=== PATIENT | female | born 1950 | race Caucasian/White ===

== ENCOUNTER 2017-11-29 14:24 | Emergency (ER) | payer MEDICARE ==
[2017-11-29 17:19] VITALS: BP 139/63
--- NOTE | 2017-11-29 17:31 | UC ---
Respiratory Complaint HPI - HPI Summary HPI Summary: Patient has flu like fever and symtpoms for the past 2 days, son and both have FLu A. - History of Current Complaint Chief Complaint: UCGeneralIllness Stated Complaint: COUGH,FEVER,FATIGUE Time Seen by Provider: 11/29/17 17:19 Hx Obtained From: Patient ?: No Onset/Duration: Sudden Onset, Lasting Days Timing: Constant Severity Initially: Mild Severity Currently: Moderate Pain Intensity: 0 Character: Cough: Nonproductive Aggravating Factors: Exertion, Deep Breaths, Recumbent Position Alleviating Factors: Nothing Associated Signs And Symptoms: Positive: Fever, Chills, Wheezing, URI - Allergies/Home Medications Allergies/Adverse Reactions: Allergies Allergy/AdvReac Type Severity Reaction Status Date / Time No Known Allergies Allergy Verified 11/29/17 17:18 PMH/Surg Hx/FS Hx/Imm Hx Previously Healthy: Yes - Surgical History Surgical History: Yes Surgery Procedure, Year, and Place: Bones spear L foot 1997. Histerectomy 2001. Tubal Ligation 1986. GASTRIC BYPASS 10/2014 - Family History Known Family History: Negative: Cardiac Disease, Hypertension - Social History Alcohol Use: None Substance Use Type: None Smoking Status (MU): Former Smoker Amount Used/How Often: pt states her son smokes in the house. pt states she quit 30 years ago Length of Time of Smoking/Using Tobacco: 13 YEARS Have You Smoked in the Last Year: No When Did the Patient Quit Smoking/Using Tobacco: 30 years ago - Immunization History Most Recent Influenza Vaccination: 2013 Most Recent Tetanus Shot: UNKNOWN Most Recent Pneumonia Vaccination: NONE Review of Systems Constitutional: Fever, Chills, Fatigue Skin: Negative Eyes: Negative ENT: Sore Throat Respiratory: Cough Cardiovascular: Negative Gastrointestinal: Negative Genitourinary: Negative Motor: Negative Neurovascular: Negative Musculoskeletal: Arthralgia, Myalgia Neurological: Headache Psychological: Negative Is Patient Immunocompromised?: No All Other Systems Reviewed And Are Negative: Yes Physical Exam Triage Information Reviewed: Yes Appearance: Well-Nourished, Ill-Appearing, Pain Distress Vital Signs: Initial Vital Signs Temp 102.2 F 11/29/17 17:14 Pulse 88 11/29/17 17:14 Resp 16 11/29/17 17:14 BP 139/63 11/29/17 17:14 Pulse Ox 99 11/29/17 17:14 Vital Signs Reviewed: Yes Eye Exam: Normal ENT: Positive: Pharyngeal erythema, TM red Dental Exam: Normal Neck exam: Normal Neck: Positive: Supple, Nontender, No Lymphadenopathy Respiratory Exam: Normal Respiratory: Positive: Chest non-tender, Lungs clear, Normal breath sounds, No respiratory distress, No accessory muscle use Cardiovascular Exam: Normal Cardiovascular: Positive: RRR, No Murmur, Pulses Normal Abdominal Exam: Normal Abdomen Description: Positive: Nontender, No Organomegaly, Soft Bowel Sounds: Positive: Present Musculoskeletal Exam: Normal Neurological Exam: Normal Psychological Exam: Normal Skin Exam: Normal UC Diagnostic Evaluation - Laboratory O2 Sat by Pulse Oximetry: 99 Respiratory Course/Dx - Course Course Of Treatment: hx obtained, exam performed ,meds reviewed, treated for flu with tamiflu - Differential Dx/Diagnosis Differential Diagnosis/HQI/PQRI: Asthma, Bronchitis, Influenza, Laryngitis, Sinusitis Provider Diagnoses: influenza Discharge - Discharge Plan Condition: Stable Disposition: HOME Patient Education Materials: Influenza (ED) Referrals: Ry Scales, [employer] [Primary Care Provider] - Additional Instructions: take the medication as prescribed. you can open the tamiflu and put it on food, or mix i with 4 oz of fluid and drink it. lots of fluids, lots of rest, ibufprofen and tylenol for pain and fever.
== END 2017-11-29 17:39 | disposition home or self-care (01) ==
LOC: UCCORT 14:24
DX: J11.1 Influenza due to unidentified influenza virus with other respiratory manifestations (principal); Z90.710 Acquired absence of both cervix and uterus; Z98.84 Bariatric surgery status; Z87.891 Personal history of nicotine dependence; Z77.22 Contact with and (suspected) exposure to environmental tobacco smoke (acute) (chronic)
CPT/HCPCS: 99212; G0463

== ENCOUNTER 2018-03-26 08:22 | Emergency (ER) | payer MEDICARE ==
[2018-03-26 08:51] VITALS: BP 118/63
--- NOTE | 2018-03-26 10:12 | UC ---
Throat Pain/Nasal Daniel HPI - HPI Summary HPI Summary: 68 yo WF c/o sore throat since yesterday associated with nasal congestion w/o f/ c - History of Current Complaint Chief Complaint: UCGeneralIllness Stated Complaint: SORE THROAT Time Seen by Provider: 03/26/18 09:21 Hx Obtained From: Patient Onset/Duration: Sudden Onset Severity: Moderate Pain Intensity: 5 Associated Signs & Symptoms: Positive: Negative - Epiglottits Risk Factors Epiglottis Risk Factors: Negative - Allergies/Home Medications Allergies/Adverse Reactions: Allergies Allergy/AdvReac Type Severity Reaction Status Date / Time No Known Allergies Allergy Verified 03/26/18 08:46 Home Medications: Home Medications Acetaminophen [Acetaminophen Extra Strength] 500 mg PO ONCE 03/26/18 [History Confirmed 03/26/18] Calcium Carbonate [Calcium] 500 mg PO DAILY 03/26/18 [History Confirmed 03/26/18 ] Cyanocobalamin (Vitamin B-12) [Vitamin B-12] 1,000 mcg PO DAILY 03/26/18 [ History Confirmed 03/26/18] PMH/Surg Hx/FS Hx/Imm Hx Previously Healthy: Yes - Surgical History Surgical History: Yes Surgery Procedure, Year, and Place: Bones spear L foot 1997. Hysterectomy 2001. Tubal Ligation 1986. GASTRIC BYPASS 10/2014 - Family History Known Family History: Negative: Cardiac Disease, Hypertension - Social History Alcohol Use: None Substance Use Type: None Smoking Status (MU): Former Smoker Amount Used/How Often: pt states her son smokes in the house. pt states she quit 30 years ago Length of Time of Smoking/Using Tobacco: 13 YEARS Have You Smoked in the Last Year: No When Did the Patient Quit Smoking/Using Tobacco: 30 years ago - Immunization History Most Recent Influenza Vaccination: 2013 Most Recent Tetanus Shot: UNKNOWN Most Recent Pneumonia Vaccination: NONE Review of Systems Constitutional: Negative Skin: Negative Eyes: Negative ENT: Sore Throat Respiratory: Negative Cardiovascular: Negative Gastrointestinal: Negative Genitourinary: Negative Motor: Negative Neurovascular: Negative Musculoskeletal: Negative Neurological: Negative Psychological: Negative All Other Systems Reviewed And Are Negative: Yes Physical Exam Triage Information Reviewed: Yes Appearance: Well-Appearing Vital Signs: Initial Vital Signs Temp 37.6 C 03/26/18 08:43 Pulse 80 03/26/18 08:43 Resp 17 03/26/18 08:43 BP 118/63 03/26/18 08:43 Pulse Ox 100 03/26/18 08:43 Vital Signs Reviewed: Yes Eye Exam: Normal ENT: Positive: Pharyngeal erythema, TMs normal. Negative: Tonsillar swelling, Tonsillar exudate Dental Exam: Normal Neck exam: Normal Neck: Positive: 1 Respiratory Exam: Normal Cardiovascular Exam: Normal Abdominal Exam: Normal Musculoskeletal Exam: Normal Neurological Exam: Normal Psychological Exam: Normal Skin Exam: Normal Throat Pain/Nasal Course/Dx - Differential Dx/Diagnosis Provider Diagnoses: pharyngitis Discharge - Sign-Out/Discharge Documenting (check all that apply): Discharge/Admit/Transfer - Discharge Plan Condition: Stable Disposition: HOME Patient Education Materials: Pharyngitis (ED) Referrals: Ry Scales NP [Primary Care Provider] - Additional Instructions: SALT WATER GARGLING TWICE A DAY - Billing Disposition and Condition Condition: STABLE Disposition: HOME
== END 2018-03-26 10:17 | disposition home or self-care (01) ==
LOC: UCCORT 08:22
DX: J02.9 Acute pharyngitis, unspecified (principal); Z87.891 Personal history of nicotine dependence; Z77.22 Contact with and (suspected) exposure to environmental tobacco smoke (acute) (chronic)
CPT/HCPCS: 87651; 99211; G0463

== ENCOUNTER 2018-05-20 17:20 | Emergency (ER) | payer MEDICARE ==
[2018-05-20 18:26] VITALS: BP 132/68
--- NOTE | 2018-05-20 18:40 | UC ---
Lower Extremity/Ankle HPI - HPI Summary HPI Summary: 68 y/o female presents to the urgent care c/o left foot pain specially at the base of 4th and 5th toe w/ bruising and swelling s/p injury w/ an exercise machine this morning around 1030AM. Pt was walking bear foot when it happened. Pain w/ standing or walking is 8/10. She has applied ice, elevated and taken Tylenol PO to alleviate symptoms. Last dose taking at 1600PM. Pt denies numbness or tinglings sensation over the toes or foot, calf pain, SOB, chest pain, abdominal pain, N/V/D. - History of Current Complaint Chief Complaint: UCLowerExtremity Stated Complaint: LEFT 4TH TOE INJURY Time Seen by Provider: 05/20/18 18:30 Hx Obtained From: Patient Onset/Duration: Sudden Onset, Lasting Hours - 9hrs, Still Present Severity Initially: Moderate Severity Currently: Moderate Pain Intensity: 8 - w/ movement Pain Scale Used: 0-10 Numeric Aggravating Factor(s): Standing, Ambulation Alleviating Factor(s): Rest, Elevation, Ice, OTC Meds - tylenol, last dose at 1600PM Able to Bear Weight: Yes - Risk Factors Gout Risk Factors: Negative DVT Risk Factors: Negative Septic Arthritis Risk Factor: Negative - Allergies/Home Medications Allergies/Adverse Reactions: Allergies Allergy/AdvReac Type Severity Reaction Status Date / Time No Known Allergies Allergy Verified 05/20/18 18:23 PMH/Surg Hx/FS Hx/Imm Hx Previously Healthy: Yes Other GI/ History: Constipation Psychological History: Anxiety - Surgical History Surgical History: Yes Surgery Procedure, Year, and Place: Bones spear L foot 1997. Hysterectomy 2001. Tubal Ligation 1986. GASTRIC BYPASS 10/2014 - Family History Known Family History: Positive: Diabetes Negative: Cardiac Disease, Hypertension - Social History Occupation: Retired Lives: With Family Alcohol Use: None Substance Use Type: None Smoking Status (MU): Former Smoker Amount Used/How Often: pt states her son smokes in the house. pt states she quit 30 years ago Length of Time of Smoking/Using Tobacco: 13 YEARS Have You Smoked in the Last Year: No When Did the Patient Quit Smoking/Using Tobacco: 30 years ago - Immunization History Most Recent Influenza Vaccination: 2013 Most Recent Tetanus Shot: UNKNOWN Most Recent Pneumonia Vaccination: NONE Review of Systems Constitutional: Negative Skin: Bruising - and swelling at the base of left 4th and 5th toes Eyes: Negative ENT: Negative Respiratory: Negative Cardiovascular: Negative Gastrointestinal: Negative Genitourinary: Negative Motor: Negative Neurovascular: Negative Musculoskeletal: Decreased ROM - left foot specially 4th and 5th toes, Other: - left 4th and 5th toe pain s/p injury Neurological: Negative Psychological: Negative Is Patient Immunocompromised?: No All Other Systems Reviewed And Are Negative: Yes Physical Exam - Summary Physical Exam Summary: Vital Signs Reviewed: Yes General : well developed, well nourished obese female w/o any apparent distress Eyes: Positive: Conjunctiva Clear - PERRLA, EOMI ENT: Positive: Normal ENT inspection, Hearing grossly normal, Pharynx normal, TMs normal Neck: Positive: Supple, Nontender, No Lymphadenopathy Respiratory: Positive: Chest non-tender, Lungs clear, Normal breath sounds, No respiratory distress Cardiovascular: Positive: RRR, No Murmur, Pulses Normal Abdomen Description: Positive: Nontender, No Organomegaly, Soft. Negative: CVA Tenderness (R), CVA Tenderness (L) Bowel Sounds: Positive: Present Musculoskeletal: Positive: Strength Intact, ROM Intact, No Edema, Left Foot/Toes : Pt is able to bear weight but ambulate with limping. LF foot :mild ecchymosis with bruising at the base of 4th and 5th toes, no erythema,or ulcers or break in skin integrity. The L foot is without obvious asymmetry or deformity when compared to the L foot. No bony step-off, point tenderness over the dorsal side of mid foot and base of the 4th and 5th metatarsal and sole at the same level, no tenderness of hindfoot, Decrease plantar/dorsiflexion, inversion/eversion due to pain. Distal motor and neurovascular status are intact. Neurological Exam: Normal Psychological Exam: Normal Skin Exam: Normal Triage Information Reviewed: Yes Vital Signs: Initial Vital Signs Temp 99.3 F 05/20/18 18:21 Pulse 70 05/20/18 18:21 Resp 17 05/20/18 18:21 BP 132/68 05/20/18 18:21 Pulse Ox 98 05/20/18 18:21 Lower Extremity Course/Dx - Course Course Of Treatment: 68 y/o female presents to the urgent care c/o left foot pain specially at the base of 4th and 5th toe w/ bruising and swelling s/p injury w/ an exercise machine this morning around 1030AM. Pt was walking bear foot when it happened. Pain w/ standing or walking is 8/10. She has applied ice , elevated and taken Tylenol PO to alleviate symptoms. Last dose taking at 1600PM. Pt denies numbness or tinglings sensation over the toes or foot, calf pain, SOB, chest pain, abdominal pain, N/V/D. Hx obtained. LF foot X-ray ordered , Impression:non displaced fracture of the 4th toe noted. Pt's 4th toe body taped w/ 5th toe and foot immobilized with raji-bandage and given a post-op shoe to avoid flexion. Advised RICE, and Rx Tylenol for pain, If not improvement of symptoms to f/u with Orthopedic DR Back referral for further evaluation and treatment. Pt understood and agreed with D/C instructions. Pt left clinic ambulating w/ help of cane. - Differential Dx/Diagnosis Differential Diagnosis/HQI/PQRI: Contusion, Fracture (Closed), Sprain, Strain, Tendonitis Provider Diagnoses: 1- Left 4th and 5th toe pain s/p injury. 2-non displaced fracture of the 4th toe Discharge - Sign-Out/Discharge Documenting (check all that apply): Patient Departure - D/C home - Discharge Plan Condition: Stable Disposition: HOME Prescriptions: Acetaminophen TAB* [Tylenol TAB*] 650 mg PO Q6H PRN #30 tab PRN Reason: Pain Patient Education Materials: Toe Fracture (ED) Referrals: Antonino Back MD [Medical Doctor] - 3 Days Ry Scales NP [Primary Care Provider] - 1 Week Additional Instructions: 1-Please continue taking Tylenol as directed to alleviate pain and swelling. 2-Please apply ice, keep your foot and 4th toe immobilized with body taping, the Raji bandage and pos-op shoe to avoid flexion. Avoid strenuous exercise or standing for long periods of time 3- Please f/u with Orthopedic DR Back 3 days for further evaluation and treatment. - Billing Disposition and Condition Condition: STABLE Disposition: Home
--- NOTE | 2018-05-20 19:08 | RAD ---
INDICATION: Left foot injury COMPARISON: None TECHNIQUE: AP, lateral, and oblique views were obtained. FINDINGS: There is a nondisplaced oblique fracture the proximal phalanx of the fourth toe. There are no other fractures. There are heel spurs. IMPRESSION: FRACTURE THE FOURTH TOE.
== END 2018-05-20 19:31 | disposition home or self-care (01) ==
LOC: UCCORT 17:20
DX: S92.502A Displaced unspecified fracture of left lesser toe(s), initial encounter for closed fracture (principal); W21.89XA Striking against or struck by other sports equipment, initial encounter
CPT/HCPCS: 99213; G0463